=== PATIENT | female | born 1970 | race Caucasian/White ===

== ENCOUNTER 2016-06-20 12:23 | Emergency (ER) | payer BC ==
[~2016-06-20 12:23] MED LIST: BAC PO; BREO ELLIPTA INH; CLARIT10 PO; DSS PO; IMITREX100 MG PO; LORT7 PO; MAX25 PO; NEUR100 PO; NORCO1 TA1 PO; PCET PO; PR25 PO; PROAIR HFA INH; PROTONIX PO; PROZ10 PO; PROZAC PO; SINGULAIR1 PO; SPIRIVA RESPIMAT INH; SYMBICORT 160/41 INH INH; UNABLE TO REMEMBER; ZYRTEC ALLGY10 MG PO; [UNRECOGNIZED DRUG - REMARK]
[2016-06-20 13:43] LABS: BASOPHILS 0.5 %; BASOPHILS ABSOLUTE 0.02 10/3/uL (0.0-0.16); EOSINOPHILS 2.5 %; EOSINOPHILS ABSOLUTE 0.11 10/3/uL (0.0-0.53); ER CBC TAT 0 Hrs 08 Mins; HEMATOCRIT 35.9 % (36.0-48.0); HEMOGLOBIN 11.6 g/dL (12.0-16.0); LYMPHOCYTES 32.4 %; MEAN CORPUS HGB CONC 32.3 g/dL (32.0-36.0); MEAN PLATELET VOLUME 9.6 fL (9.2-13.0); MONOCYTES 7.6 %; MONOCYTES ABSOLUTE 0.33 10/3/uL (0.21-1.20); NEUTROPHILS ABSOLUTE 2.46 10/3/uL (2.02-8.40); PLATELET COUNT 191 10/3/uL (150-400); RBC DISTRIBUTION WIDTH 15.7 % (12.0-16.0); RED CELL COUNT 4.62 10/6/uL (4.0-5.6); WHITE BLOOD CELLS 4.3 10/3/uL (4.5-10.5)
[2016-06-20 13:45] LABS: MANUAL DIFF NO %; MEAN CORPUSCULAR HEMOGLOB 25.1 pg (26.0-34.0); MEAN CORPUSCULAR VOLUME 77.7 fL (80-100)
[2016-06-20 13:47] LABS: ASCORBIC ACID (UR NOT ORDER) NEG (NEG); BILIRUBIN, URINE NEGATIVE (NEG); ER URINALYSIS TAT 0 Hrs 12 Mins; KETONE, URINE NEGATIVE (NEG); LEUKOCYTE ESTERASE(NOT OR TRACE (NEG); NITRITE (URINE) NEG (NEG); WBC (NOT ORDERED) (RFLEX) 16 (0-5)
[2016-06-20 13:54] LABS: BUN (BLOOD UREA NITROGEN) 12 MG/DL (6-23); CALCIUM, SERUM 9.2 MG/DL (8.5-10.4); CHLORIDE, SERUM 101 MMOL/L (96-112); CO2 (CARBON DIOXIDE) 31 MMOL/L (24-34); CREATININE 0.79 MG/DL (0.55-1.02); GFR AFRICAN AMERICAN 105 ML/MIN (>=60); GFR NON AFRICAN AMERICAN 90 ML/MIN (>=60); POTASSIUM, SERUM 4.3 MMOL/L (3.5-5.3); SODIUM, SERUM 138 MMOL/L (135-148)
[2016-06-20 13:55] LABS: GLUCOSE, SERUM 108 MG/DL (60-99)
[2016-10-16] MEDS ORDERED: CEFT2 PO (17:41)
[2016-10-16] MEDS ORDERED: NORCO1 TA2 PO (17:42)
[2016-10-16] MEDS ORDERED: PROZAC40 MG PO (17:43)
[2016-10-16] MEDS ORDERED: PR25 PO (17:43)
[2016-10-18] MEDS ORDERED: LEVAQUIN750 MG PO (08:49)
== END 2016-06-20 15:22 | disposition home or self-care (01) ==
LOC: ER 12:23
PROVIDERS: Nurse Practitioner Acute Care
DX: N13.30 Unspecified hydronephrosis (principal); I10 Essential (primary) hypertension; J45.909 Unspecified asthma, uncomplicated; Z87.442 Personal history of urinary calculi; Z91.040 Latex allergy status; Z79.899 Other long term (current) drug therapy
CPT/HCPCS: 74000; 74176; 80048; 81001; 85025; 96374; 99284; J2405

== ENCOUNTER 2016-07-07 04:58 | Inpatient (IN) | payer BC ==
[2016-06-30 12:45] LABS: HEMATOCRIT 35.3 % (36.0-48.0); HEMOGLOBIN 11.5 g/dL (12.0-16.0)
[2016-06-30 12:53] LABS: ASCORBIC ACID (UR NOT ORDER) NEG (NEG); BILIRUBIN, URINE NEGATIVE (NEG); KETONE, URINE NEGATIVE (NEG); LEUKOCYTE ESTERASE(NOT OR NEG (NEG); WBC (NOT ORDERED) (RFLEX) 1 (0-5)
[2016-06-30 12:56] LABS: CALCIUM, SERUM 8.6 MG/DL (8.5-10.4); CHLORIDE, SERUM 106 MMOL/L (96-112); CO2 (CARBON DIOXIDE) 29 MMOL/L (24-34); CREATININE 0.85 MG/DL (0.55-1.02); GFR AFRICAN AMERICAN 96 ML/MIN (>=60); GFR NON AFRICAN AMERICAN 83 ML/MIN (>=60); GLUCOSE, SERUM 93 MG/DL (60-99); POTASSIUM, SERUM 3.5 MMOL/L (3.5-5.3); SODIUM, SERUM 140 MMOL/L (135-148)
[2016-06-30 12:57] LABS: BUN (BLOOD UREA NITROGEN) 16 MG/DL (6-23)
--- NOTE | ~2016-07-07 | OP ---
Record Of Operation [facility] [address] [place]. [address] NAME: PAYAL FINE : 72 STATUS : DIS IN PAT#: [id number] AGE: 46 ADM/REG DATE : 07/07/16 MR#: [id number] REPORT SERV DATE: 07/10/16 DICTATED BY: USHA ALTMAN DATE: 07/09/16 REPORT STATUS : Draft TRANSCRIBED BY: MODL DATE: 07/09/16 DATE OF PROCEDURE: 07/07/2016 TITLE OF OPERATION: 1. Robot-assisted laparoscopic right ureterolysis. 2. Robotic-assisted laparoscopic right pyeloplasty with omental wrap. 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 INDICATIONS: Mrs. 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 I did a pyeloplasty on her approximately a year ago. She had initial good response, but her stricture has recurred. She has hydronephrosis with delayed T1/2 on MAG3 scan. She is symptomatic. She is here for repeat repair. ANESTHESIA: General. COMPLICATIONS: None. IMPLANTS: 6 x 26 [place] stent, round #10 LENA drain, 16-Nauruan Torres catheter. SPECIMEN: Ureteral stricture. NARRATIVE: The patient was brought to the operating room, identified via wristband. General anesthesia was induced and Ancef was given for preoperative antibiotics. A 16-Nauruan Torres catheter was placed into her bladder. The balloon was inflated with 10 mL of sterile water. She was placed in modified right flank position and secured to the bed with pads and tape. She was then prepped and draped in sterile fashion. The abdomen was insufflated to a pressure of 15 mmHg using a Veress needle. A 5 mm port was placed in one of her previous robotic scars. The abdomen was inspected. There were no significant adhesions. A standard X-Y port placement was performed with four 8 mm ports in a straight line of the midclavicular line. A 12 mm port was placed in the supraumbilical position for an research program assistant port. The patient was rotated. The robot was docked. The colon was noted to be dropped along the white line of Toldt from the prior operation. Some omental adhesions were identified and sharply lysed. The ureter was identified well above the inferior vena cava. It was encased in scar. I carefully incised above the ureter. Eventually, we got around the inflammatory mass. A vessel loop was placed. The ureterolysis was performed with scissors. Eventually, the ureter was freed above and below the area of concern. I think some of her obstruction was likely due to the fibrotic reaction in her retroperitoneum. Once the ureter was completely freed up, a clip was identified beneath the ureter. This was sharply removed. Her prior CT scan was closely inspected. The area of stricture at the level of the lower pole of the kidney. This area was divided anteriorly with Meier scissors. A large amount of urine was immediately freed proximal to this suggesting site of obstruction. The scar was excised and sent to Pathology as a ureteral scar. The ureter was spatulated medially with Meier scissors. There was some redundant pelvis. The pelvis was Record Of Operation [address] [place]. [address] NAME: PAYAL FINE : 72 STATUS : DIS IN PAT#: [id number] AGE: 46 ADM/REG DATE : 07/07/16 MR#: [id number] REPORT SERV DATE: 07/10/16 DICTATED BY: USHA ALTMAN DATE: 07/09/16 REPORT STATUS : Draft TRANSCRIBED BY: PEARL DATE: 07/09/16 spatulated laterally. A was brought down into the ureter spatulation. This was sutured with a 4-0 PDS suture. The posterior was made also with a 4-0 PDS suture. A 6 x 26 [place] stent was placed in an antegrade fashion. The anastomosis was then completed with the pre-placed PDS sutures in a running fashion. The connection was water tight. Omentum was then identified and brought over beneath and around the ureter for additional support. This was sutured in place with a 3-0 V-Loc suture. There was no blood loss. The robot was removed. The research program assistant port was closed with a 0 Vicryl suture using a Edgar-Puja fashion. The wounds were irrigated clear. The subcutaneous tissues were closed with a 3-0 Vicryl suture. Skin was closed with a 4-0 Monocryl suture. Dermabond dressing was placed. TAP block was placed preoperatively. The patient was awoken from anesthesia and transferred to the recovery room in stable condition. There were no complications. LES/PEARL Usha Altman MD / [id number] CC: MD Adan Orosco Susan R.
[2016-07-07 12:19] LABS: BASOPHILS 0.3 %; BASOPHILS ABSOLUTE 0.01 10/3/uL (0.0-0.16); EOSINOPHILS 0 %; HEMATOCRIT 32.8 % (36.0-48.0); HEMOGLOBIN 10.8 g/dL (12.0-16.0); IMMATURE GRANULOCYTES 0.3 %; IMMATURE GRANULOCYTES ABSOLUTE 0.01 10/3/uL (0.0-0.11); LYMPHOCYTES 17.4 %; LYMPHOCYTES ABSOLUTE 0.52 10/3/uL (0.67-4.30); MEAN CORPUS HGB CONC 32.9 g/dL (32.0-36.0); MEAN CORPUSCULAR HEMOGLOB 25.5 pg (26.0-34.0); MEAN CORPUSCULAR VOLUME 77.5 fL (80-100); MEAN PLATELET VOLUME 9.5 fL (9.2-13.0); MONOCYTES 1.3 %; MONOCYTES ABSOLUTE 0.04 10/3/uL (0.21-1.20); NEUTROPHILS 80.7 %; PLATELET COUNT 167 10/3/uL (150-400); RBC DISTRIBUTION WIDTH 15.9 % (12.0-16.0); RED CELL COUNT 4.23 10/6/uL (4.0-5.6)
[2016-07-07 12:23] LABS: MANUAL DIFF NO %
[2016-07-07 12:40] LABS: CALCIUM, SERUM 8.3 MG/DL (8.5-10.4); CHLORIDE, SERUM 106 MMOL/L (96-112); CO2 (CARBON DIOXIDE) 29 MMOL/L (24-34); CREATININE 0.68 MG/DL (0.55-1.02); GFR AFRICAN AMERICAN 122 ML/MIN (>=60); GFR NON AFRICAN AMERICAN 106 ML/MIN (>=60); POTASSIUM, SERUM 3.2 MMOL/L (3.5-5.3); SODIUM, SERUM 141 MMOL/L (135-148)
[2016-07-07 12:42] LABS: BUN (BLOOD UREA NITROGEN) 12 MG/DL (6-23); GLUCOSE, SERUM 129 MG/DL (60-99)
[2016-07-08 07:43] LABS: BASOPHILS 0.4 %; BASOPHILS ABSOLUTE 0.02 10/3/uL (0.0-0.16); EOSINOPHILS 2.1 %; HEMATOCRIT 32.2 % (36.0-48.0); HEMOGLOBIN 10.5 g/dL (12.0-16.0); IMMATURE GRANULOCYTES 0.2 %; IMMATURE GRANULOCYTES ABSOLUTE 0.01 10/3/uL (0.0-0.11); LYMPHOCYTES 23.2 %; LYMPHOCYTES ABSOLUTE 1.09 10/3/uL (0.67-4.30); MEAN CORPUS HGB CONC 32.6 g/dL (32.0-36.0); MEAN CORPUSCULAR HEMOGLOB 25.7 pg (26.0-34.0); MEAN CORPUSCULAR VOLUME 78.7 fL (80-100); MEAN PLATELET VOLUME 9.4 fL (9.2-13.0); MONOCYTES 6.6 %; MONOCYTES ABSOLUTE 0.31 10/3/uL (0.21-1.20); NEUTROPHILS 67.5 %; NEUTROPHILS ABSOLUTE 3.17 10/3/uL (2.02-8.40); PLATELET COUNT 175 10/3/uL (150-400); RBC DISTRIBUTION WIDTH 16.2 % (12.0-16.0); RED CELL COUNT 4.09 10/6/uL (4.0-5.6)
[2016-07-08 07:44] LABS: MANUAL DIFF NO %; WHITE BLOOD CELLS 4.7 10/3/uL (4.5-10.5)
[2016-07-08 07:52] LABS: BUN (BLOOD UREA NITROGEN) 6 MG/DL (6-23); CALCIUM, SERUM 8.2 MG/DL (8.5-10.4); CHLORIDE, SERUM 109 MMOL/L (96-112); CO2 (CARBON DIOXIDE) 31 MMOL/L (24-34); CREATININE 0.64 MG/DL (0.55-1.02); GFR AFRICAN AMERICAN 125 ML/MIN (>=60); GFR NON AFRICAN AMERICAN 108 ML/MIN (>=60); GLUCOSE, SERUM 117 MG/DL (60-99); POTASSIUM, SERUM 3.3 MMOL/L (3.5-5.3); SODIUM, SERUM 143 MMOL/L (135-148)
[2016-07-08] MEDS ORDERED: DSS PO (12:25)
[2016-10-16] MEDS ORDERED: CEFT2 PO (17:41)
[2016-10-16] MEDS ORDERED: NORCO1 TA2 PO (17:42)
[2016-10-16] MEDS ORDERED: PROZAC40 MG PO (17:43)
[2016-10-16] MEDS ORDERED: PR25 PO (17:43)
[2016-10-18] MEDS ORDERED: LEVAQUIN750 MG PO (08:49)
== END 2016-07-08 18:02 | disposition home or self-care (01) | DRG 660 ==
LOC: SDC/OF 04:58 → PACU 11:54 → 4SO 14:17
PROVIDERS: Urology
PROC: 0TQ34ZZ Repair Right Kidney Pelvis, Percutaneous Endoscopic Approach (ICD-10-PCS; principal; 2016-07-07 06:30)
PROC: 0TU Urinary System, Supplement (ICD-10-PCS; principal; 2016-07-07 06:30)
PROC: 0T764DZ Dilation of Right Ureter with Intraluminal Device, Percutaneous Endoscopic Approach (ICD-10-PCS; principal; 2016-07-07 06:30)
PROC: 0TN64ZZ Release Right Ureter, Percutaneous Endoscopic Approach (ICD-10-PCS; principal; 2016-07-07 06:30)
PROC: 8E0W4CZ Robotic Assisted Procedure of Trunk Region, Percutaneous Endoscopic Approach (ICD-10-PCS; principal; 2016-07-07 06:30)
DX: N13.1 Hydronephrosis with ureteral stricture, not elsewhere classified (principal); I10 Essential (primary) hypertension; K21.9 Gastro-esophageal reflux disease without esophagitis; J45.909 Unspecified asthma, uncomplicated; Z87.442 Personal history of urinary calculi
CPT/HCPCS: 36415; 80048; 81001; 82570; 84703; 85014; 85018; 85025; 86850; 86900; 86901; 86920; 88305; 93005; A9270-GY; C2617; J0690; J1170; J1885; J2250; J2405; J2710; J2795; J3010

== ENCOUNTER 2016-08-18 08:04 | Day surgery (SDC) | payer BC ==
--- NOTE | ~2016-08-18 | OP ---
Record Of [facility] [address] [place]. [address] NAME: PAYAL FINE : 72 STATUS : [facility]#: [id number] AGE: 46 ADM/REG DATE : 08/18/16 MR#: [id number] REPORT SERV DATE: 08/19/16 DICTATED BY: USHA ALTMAN DATE: 08/19/16 REPORT STATUS : Draft TRANSCRIBED BY: PEARL DATE: 08/19/16 DATE OF PROCEDURE: 08/18/2016 TITLE OF OPERATION: 1. Cystourethroscopy. 2. Removal of right ureteral stent. 3. Right retrograde pyelogram. PREOPERATIVE DIAGNOSIS: History of UPJ obstruction. POSTOPERATIVE DIAGNOSIS: History of UPJ obstruction. INDICATIONS: Ms. Fine is a 46-year-old female with history of ureteral stricture due to stone disease. She initially underwent ureteral repair by in robotically. This failed. She then underwent a redo repair 6 weeks ago. She is here for stent removal. ANESTHESIA: General. COMPLICATIONS: None. IMPLANTS: None. SPECIMENS: None. NARRATIVE: The patient was brought to the operating room, identified by her wristband. General anesthesia was induced and Levaquin was given for preoperative antibiotics. She was placed in the dorsal lithotomy position, and prepped and draped in a sterile fashion. A cystoscope was placed into her urethra and into her bladder. The bladder was inspected. It was normal. The stent was seen emanating from her right ureteral orifice. It was grasped with flexible grasper and removed. A 5-[place] Lucian open-ended catheter was placed into the distal ureter. A retrograde pyelogram was shot which showed no hydronephrosis and no obvious ureteral stricture. The kidney filled spontaneously. I decided to not leave a stent. The bladder was drained. The patient was awoken from anesthesia and transferred to the recovery room in stable condition. I will see her back in 6 weeks with a renal ultrasound prior. LES/PEARL Usha Altman MD / [id number] CC: Record Of Operation [facility] [address] [address] NAME: PAYAL FINE : 72 STATUS : [facility] PAT#: [id number] AGE: 46 ADM/REG DATE : 08/18/16 MR#: [id number] REPORT SERV DATE: 08/19/16 DICTATED BY: USHA ALTMAN DATE: 08/19/16 REPORT STATUS : Draft TRANSCRIBED BY: MODL DATE: 08/19/16 MD CESIA Orosco
[2016-10-16] MEDS ORDERED: CEFT2 PO (17:41)
[2016-10-16] MEDS ORDERED: NORCO1 TA2 PO (17:42)
[2016-10-16] MEDS ORDERED: PR25 PO (17:43)
[2016-10-16] MEDS ORDERED: PROZAC40 MG PO (17:43)
[2016-10-18] MEDS ORDERED: LEVAQUIN750 MG PO (08:49)
== END 2016-08-18 14:09 | disposition home or self-care (01) ==
LOC: SDC 08:04
PROVIDERS: Urology
PROC: BT1DZZZ Fluoroscopy of Right Kidney, Ureter and Bladder (ICD-10-PCS; 2016-08-18)
PROC: 0TP98DZ Removal of Intraluminal Device from Ureter, Via Natural or Artificial Opening Endoscopic (ICD-10-PCS; principal; 2016-08-18 09:30)
DX: Z46.6 Encounter for fitting and adjustment of urinary device (principal); N13.5 Crossing vessel and stricture of ureter without hydronephrosis; I10 Essential (primary) hypertension; J45.909 Unspecified asthma, uncomplicated; G43.909 Migraine, unspecified, not intractable, without status migrainosus; K21.9 Gastro-esophageal reflux disease without esophagitis; Z87.442 Personal history of urinary calculi
CPT/HCPCS: 74420; 81001; 84703; 85014; 85018; 93005; C1726; C1758; C1769; J2250; J2405; J3010; Q9967